=== PATIENT | female | born 1950 | race Caucasian/White ===

== ENCOUNTER 2023-06-14 10:22 | Outpatient (CLI) | payer MEDICARE | END 2023-06-14 10:23 | disposition home or self-care (01) | LOC: CSHMAMMO 10:22 | PROVIDERS: ATTEND Student in an Organized Health Care Education/Training Program | DX: Z12.31 Encounter for screening mammogram for malignant neoplasm of breast (principal) | CPT/HCPCS: 77063; 77067 ==

== ENCOUNTER 2025-06-22 08:56 | Outpatient (CLI) | payer MEDICARE | END 2025-06-22 08:57 | disposition home or self-care (01) | LOC: CSHMAMMO 08:56 | PROVIDERS: ATTEND Family Medicine | DX: Z12.31 Encounter for screening mammogram for malignant neoplasm of breast (principal) | CPT/HCPCS: 77063; 77067 ==